=== PATIENT | female | born 1945 | race Caucasian/White ===

== ENCOUNTER → 2016-12-31 15:00 | Outpatient (CLI) | payer MEDICARE, OTHER ==
[2015-12-12 11:55] VITALS: BMI 25.9
[~2016-12-31 15:00] MED LIST: BAYER CHEWABLE81 MG PO; CENTRUM COMPLE1 EACH PO; HYDROCODONE-APA1 TAB PO; LIPITOR20 MG PO; SYNTHROID175 MCG PO; TENORMIN50 MG PO; ZESTORETIC 10/11 TAB PO
== END | disposition home or self-care (01) ==
LOC: D.CT 15:00
DX: I71.4 Abdominal aortic aneurysm, without rupture (principal)

== ENCOUNTER → 2018-02-10 19:15 | Outpatient (CLI) | payer MEDICARE, OTHER ==
[2015-12-12 11:55] VITALS: BMI 25.9
== END | disposition home or self-care (01) ==
LOC: D.MAMMO 13:00
DX: Z12.31 Encounter for screening mammogram for malignant neoplasm of breast (principal)

== ENCOUNTER → 2018-03-11 08:11 | Outpatient (CLI) | payer MEDICARE, OTHER ==
[2015-12-12 11:55] VITALS: BMI 25.9
== END | disposition home or self-care (01) ==
LOC: D.US 08:11
DX: I71.4 Abdominal aortic aneurysm, without rupture (principal)

== ENCOUNTER → 2019-03-17 13:33 | Outpatient (CLI) | payer MEDICARE, OTHER ==
[2015-12-12 11:55] VITALS: BMI 25.9
== END | disposition home or self-care (01) ==
LOC: D.CT 13:33
PROVIDERS: ATTEND Internal Medicine Cardiovascular Disease
DX: I71.4 Abdominal aortic aneurysm, without rupture (principal)

== ENCOUNTER 2019-03-26 12:24 | Outpatient (CLI) | payer MEDICARE, OTHER ==
[2015-12-12 11:55] VITALS: BMI 25.9
== END 2019-03-26 23:59 | disposition home or self-care (01) ==
LOC: D.MAMMO 12:24
PROVIDERS: ATTEND Family Medicine
DX: Z12.31 Encounter for screening mammogram for malignant neoplasm of breast (principal)

== ENCOUNTER → 2020-03-17 08:13 | Outpatient (CLI) | payer MEDICARE, OTHER ==
[2015-12-12 11:55] VITALS: BMI 25.9
== END | disposition home or self-care (01) ==
LOC: D.CT 08:13
PROVIDERS: ATTEND Internal Medicine Cardiovascular Disease
DX: I71.4 Abdominal aortic aneurysm, without rupture (principal)

== ENCOUNTER → 2021-03-27 10:57 | Outpatient (CLI) | payer MEDICARE, OTHER ==
[2015-12-12 11:55] VITALS: BMI 25.9
== END | disposition home or self-care (01) ==
LOC: D.CT 10:57
PROVIDERS: ATTEND Internal Medicine Interventional Cardiology
DX: I71.4 Abdominal aortic aneurysm, without rupture (principal)

== ENCOUNTER 2021-04-20 09:30 | Outpatient (CLI) | payer MEDICARE, OTHER ==
[2015-12-12 11:55] VITALS: BMI 25.9
== END 2021-04-20 23:59 | disposition home or self-care (01) ==
LOC: D.MAMMO 09:30
PROVIDERS: ATTEND Nurse Practitioner
DX: N63.24 Unspecified lump in the left breast, lower inner quadrant (principal)